=== PATIENT | male | born 1965 ===

== ENCOUNTER 2018-04-20 13:21 | Inpatient (IN) | payer BC ==
[2018-04-22] MEDS: HYDROCODONE/APAP 10/325 TAB PO PRN ×2 (19:12→23:22)
[2018-04-22] MEDS ORDERED: Herbals/Supplements -Info Only PO SCH (21:00)
[2018-04-22] MEDS: GABAPENTIN 300 MG CAP PO SCH (21:07)
[2018-04-22] MEDS: INSULIN GLARGINE 100 UNITS/ML UNIT SC SCH (21:09)
[2018-04-23] MEDS: HYDROCODONE/APAP 10/325 TAB PO PRN ×2 (05:41→09:56)
[2018-04-23] MEDS ORDERED: Meloxicam [Meloxicam] 15 MG PO SCH (09:00)
[2018-04-23] MEDS: ENOXAPARIN 40 MG/0.4 ML SYR SC SCH (09:56)
[2018-04-23] MEDS ORDERED: GABAPENTIN 300 MG CAP PO SCH (10:00)
[2018-04-23 10:11] LABS: PLATELET COUNT 399 10^3/uL (150-400)
--- NOTE | 2018-04-23 12:48 | PDOREHIP ---
Admission IRF-[facility] - Admission - 3 Day Assessment Period Admission Date/Day 1: 04/22/18 Day 2: 04/23/18 Day 3: 04/24/18 - Active Diagnoses Comorbidities and Co-existing Conditions at Admission: 53523. PVD or PAD, 81331. DM (e.g. diabetic retinopathy, nephropathy, and neuropathy) - Skin Conditions Unhealed Pressure Ulcer (1 or more/Stage 1 or >)-Admission: 1. Yes # Unstageable Pressure Ulcers (Slough/Eschar)-Admission: 1 (Right heel)
[2018-04-23] MEDS: oxyCODONE IR 5 MG TAB PO PRN ×2 (13:54→20:21)
--- NOTE | 2018-04-23 14:21 | GHP ---
[f rep st] HISTORY AND PHYSICAL DATE OF ADMISSION: 04/22/2018 TIME OF EVALUATION: 1230. REFERRING FACILITY: [facility]. REFERRING PHYSICIAN: Dr. Dozier IMPAIRMENT GROUP: 5.4. DATE OF ONSET: 04/18/2018. CONSULTING PHYSICIANS: He was seen in consultation by the Infectious Disease service and on his prior hospital stay he had a BKA by orthopedic surgeon, Dr. Shikha Hill, and also had consultation with Podiatry Dr. George, and Wound Care. REHABILITATION DIAGNOSIS: Debility, status post left iijcw-heg-gebl amputation. RADIOLOGIC DIAGNOSIS: Unilateral lower limb below the knee. DATE OF SURGERY: 04/17/2018. HISTORY OF PRESENT ILLNESS: This patient had a left vdmmm-tzc-mwlv amputation on 04/17/2018. He was discharged home and suffered a mechanical fall while attempting to transfer from his scooter. He returned to [facility]. There was no acute injury found. He was referred from there to inpatient rehabilitation for functional training for a safe discharge to home. STUDIES AND LABS IN THE HOSPITAL: He had a basic metabolic profile done on . There was a slightly high chloride at 108. Otherwise, renal function and electrolytes were within normal limits. His blood sugars during his stay ranged from 99-185. CBC revealed anemia with a hemoglobin of 7.7 and a hematocrit of 25.5 on 04/20/2018. Otherwise, CBC was normal. He had cultures done of amputated tissue on 04/17/2018, and these were not growing any organisms. PRECAUTIONS: He is a fall risk. He has orthopedic precautions with nonweightbearing on the left lower extremity. ACTIVE COMORBIDITIES: He has the tier 3 comorbidity of diabetes mellitus with manifestation. He otherwise has no tier 1, tier 2, or tier 3 comorbidities. PAST MEDICAL HISTORY: 1. Diabetes mellitus type 2. 2. Peripheral vascular disease. 3. Hypertension. 4. Osteomyelitis of the left lower extremity, which had previously been treated with antibiotics and hyperbaric oxygen. PAST SURGICAL HISTORY: He has had the msoex-ytt-vbdv amputation on the left. PRE-HOSPITAL MEDICATIONS: I do not have a list other than knowing that he was on metformin and meloxicam. ADMISSION MEDICATIONS: 1. Gabapentin 300 mg daily at 10 a.m. and 600 mg daily at bedtime. 2. Insulin glargine 10 units subcutaneous at bedtime. 3. Hydrocodone/acetaminophen 10/325 one tab p.o. q.4 hours p.r.n. 4. Meloxicam 15 mg p.o. daily. ALLERGIES: He has an allergy to penicillins. PSYCHOSOCIAL HISTORY: He is . He lives with his . 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 He reports he currently works for a [employer]. He has a history of heavy alcohol use, but he has been sober. He has a history of smoking, but has reduced his smoking to 3 or 4 cigarettes a day and intends to quit entirely. FAMILY HISTORY: Noncontributory. REVIEW OF SYSTEMS: He reports poor sleep for weeks. Pain occasionally interrupts sleep, but just as much he has been interrupted by hospital personnel for cares. He has pain below the knee on the left lower extremity and he has some phantom limb pain as well. He denies fevers or chills, cough or dyspnea, nausea, vomiting, constipation, or diarrhea. He denies dysuria or urinary frequency. He reports sensation is absent to light touch on the right lower leg where he says he has sensation for pressure. Otherwise, a 10-point review of systems is negative. PHYSICAL EXAM: VITAL SIGNS: Blood pressure is 106/65, heart rate is 80, respiratory rate is 18, oxygen saturation is 97% on room air. Temperature is 36.4 degrees centigrade. His weight is 112.7 kg for a body mass index of 32. GENERAL: This is an obese man, dressed in street clothes, napping in bed, easily awakened, cooperative, and in no acute distress. HEENT: Extraocular movements are intact. Pupils are equal, round, reactive to light. Mucous membranes are moist. Dentition is in good condition. He has an uncrowded airway, Mallampati class 2. NECK: Supple. HEART: There is a regular rate and rhythm with no murmurs, rubs, or gallops. LUNGS: Clear to auscultation bilaterally. ABDOMEN: Soft, nontender, nondistended with normoactive bowel sounds and no hepatosplenomegaly. He has abdominal obesity. EXTREMITIES: Radial pulses are 2+ bilaterally. Dorsalis pedis pulse is trace on the right lower extremity. Posterior tibialis pulse is not palpable. He has trace to 1+ edema on the right lower extremity. The left lower extremity is wrapped and with a residual limb protector, which also keeps his left knee in extension. NEUROLOGIC: He is alert and oriented x3. Cranial nerves 2-12 are grossly intact. There is no focal weakness. Sensation overall is intact to light touch , but absent or diminished in the left lower extremity. SKIN: There is approximately 1 cm eschar over the left heel and he has what appeared to be Mepilex bandages on the 5th and 4th toes. CURRENT LEVEL OF FUNCTION PER THE PREADMISSION SCREEN: He required setup for meals, but otherwise no assistance for diet, feeding, or swallowing. He required supervision and setup for grooming. Dressing was done with supervision for the upper body and moderate assistance for the lower body. Toileting required standby assist for transfers. He was independent with hygiene. He was continent of bowel and bladder. Bed mobility required standby assist with a railing. For transfers, he did a stand pivot transfer with standby assist and moderate cues for safety. He used a front-wheeled walker. Balance required standby to contact guard assist. Endurance was fair. He ambulated 2 feet with a front-wheeled walker. Cognition and communication were considered within normal limits. There are no significant changes on the current exam from the pre-admission screen. IMPRESSION: This is a 52-year-old man with a long history of type 2 diabetes and peripheral vascular disease and history of smoking, who had a chronic left foot infection since September of 2017. He reports this began with a furniture tack which he stepped on and the initial wound became infected. After a prolonged period of antibiotics and attention from a waterproof coating machine tender, he had osteomyelitis which was not healing, and so he elected to have a left below-the- knee amputation. Surgery apparently went well with minimal complications and he was discharged home. However, while at home, he had a fall while attempting to make a transfer from his scooter. His felt overwhelmed trying to take care of him in his condition; and, at the instruction of a visiting nurse in his home, he went back to [facility]. There, he was assessed to not have serious injury and had normal lab studies, he was participating in physical and occupational therapies, and appropriate for inpatient rehabilitation. His goal is to complete a rehabilitation stay and then discharge home with supportive services. For a safe discharge, he will need to achieve independence with eating, grooming, dressing and bed mobility. It is expected he will achieve modified independence for transfers and that he will be ambulating with a walker versus crutches. He will be independent with use of a wheelchair for community distances. He will have modified independence to negotiate stairs. He will have therapy with Physical Therapy and Occupational Therapy. Additionally, I have ordered speech and language pathology due to concerns regarding cognition expressed by nurses this morning. So, he will have physical therapy, occupational therapy, and speech and language pathology for 1 hour per day for each discipline on 5-7 days of the week. His expected duration of stay is 5-7 days. It is anticipated that upon discharge he will continue to benefit from home health services including nursing, occupational therapy, and physical therapy, as well as an amputation support group. PLAN: 1. Debility, status post left qhzzr-tfd-tszh amputation. PT and OT to optimize mobility and activities of daily living toward the independent to modified independent level. 2. Aftercare for yqqbe-abp-sfhm amputation. Continue brace to lower limb to protect stump and maintain the knee in extension to avoid contracture. I have discussed wound care with the wound care clinic at [facility] and they will be faxing further wound care instructions. 3. Diabetes mellitus type 2. He is on insulin glargine 10 units subcutaneous at bedtime. Laboratories were checked this morning. His hemoglobin A1c was 7.2 , indicating quite good control with his current regimen. We will have further discussion with him regarding restarting metformin. Potentially, insulin can be tapered further. Upon reading hospital notes, his glycemic control is better than prior to his amputation. Presumably, the chronic infection was causing hyperglycemia. His fasting glucose this morning was 107. There will be a geriatric physician consult who can also address his obesity. 4. Peripheral vascular disease and ulceration to the right heel and between toes on the right foot. I have ordered a Wound Care consult. His heel will be offloaded and I have asked for wound care orders from the wound care clinic at [facility]. 5. Anemia. Postoperative is improving quite a bit with a hemoglobin of 9.9 and a hematocrit of 32.3 this morning. MCV is normal at 88.3. Doubtful that he will need further blood draws during his stay. 6. History of alcohol abuse. Liver function tests were overall within normal limits this morning. Alkaline phosphatase was slightly elevated at 202, but this may have been bony in origin status post amputation. 7. Pain management appears to be less than adequate on hydrocodone/ acetaminophen combination. Will discontinue that medication and initiate oxycodone 5-10 mg q.3 hours p.r.n. and additionally will prescribe acetaminophen 1000 mg p.o. three times daily scheduled. Will continue gabapentin and will increase dosing from 300 mg in the morning and 600 mg at bedtime to 300 mg in the morning and the afternoon and 600 mg at bedtime to treat phantom limb pain and diabetic neuropathy. 8. Possible cognitive impairment versus delirium. Nursing reports that he was disoriented this morning and had difficulty cognitively understanding the menu and ordering meals. I have ordered a speech and language pathology consultation to evaluate his cognition. I anticipate that it will improve as any delirium from the hospital resolves and as his sleep improves. 9. Insomnia. We will pay attention to pain control. I have also ordered melatonin for the next 3 nights to reset his sleep/wake cycle which presumably has been disturbed during his hospitalization, and I have ordered trazodone 50 mg scheduled at bedtime. 10. Tobacco dependence syndrome. He intends to quit smoking. He declined the offer of nicotine replacement products. 11. Prophylaxis. He is at elevated risk with obesity and status post below-the -knee amputation. I have ordered enoxaparin 40 mg subcutaneous daily. Anticoagulation should be continued 2-4 weeks for DVT prophylaxis status post bavij-glm-ajpe amputation. He has no history of gastric ulceration or gastritis. I will not prescribe an acid reducing medication. 13. Followup: He will follow up with orthopedic surgeon, Dr. Shikha Hill at the [facility] after discharge. /[id number]/MODL MTDD
[2018-04-23] MEDS: GABAPENTIN 300 MG CAP PO SCH ×2 (14:50→20:19)
[2018-04-23] MEDS: ACETAMINOPHEN 500 MG TAB PO SCH ×2 (14:50→20:20)
[2018-04-23] MEDS: MELATONIN 3 MG TAB PO SCH (20:20)
[2018-04-23] MEDS: traZODone 50 MG TAB PO SCH (20:20)
[2018-04-23] MEDS: INSULIN GLARGINE 100 UNITS/ML UNIT SC SCH (21:45)
[2018-04-24] MEDS: oxyCODONE IR 5 MG TAB PO PRN ×6 (01:52→21:10)
[2018-04-24] MEDS: GABAPENTIN 300 MG CAP PO SCH ×3 (08:59→21:09)
[2018-04-24] MEDS: ENOXAPARIN 40 MG/0.4 ML SYR SC SCH (08:59)
[2018-04-24] MEDS: ACETAMINOPHEN 500 MG TAB PO SCH ×3 (08:59→21:10)
[2018-04-24] MEDS ORDERED: BISACODYL 10 MG SUPP PR PRN (09:36)
[2018-04-24] MEDS ORDERED: SENNOSIDES 1 TAB PO PRN (09:36)
--- NOTE | 2018-04-24 09:59 | SOAPPROG ---
SOAP Progress Note Assessment/Plan: Assessment: Debility, status post left amwgi-qyk-hffy amputation. * Initial functional independence measure is 98 on 04/24/2018. Standby assist for bed mobility. Contact guard assist for transfers with cues. Ambulated 50 ft with a front wheeled walker and contact guard assist. Did grooming and hygiene with standby assist, seated. Upper body dressing is independent with setup, lower body dressing requires standby assist. He showered with intermittent supervision. Toilet transfer was done with contact guard assist. * Continue PT and OT to optimize mobility and activities of daily living toward the independent to modified independent level. Aftercare for dpfju-qvb-zomm amputation. Continue brace to lower limb to protect stump and maintain the knee in extension to avoid contracture. * Knee pain and popliteal redness may be due to the fit of the brace. PT to work with patient to optimize fit. * Dressing to be left in place on residual limb. Diabetes mellitus type 2. * Initiate metformin 500 mg twice daily starting 04/24/2018; titrate to 1000 mg twice daily if tolerated. Check daily fasting blood sugar. Reduce insulin glargine from 10 units at bedtime to 5 units at bedtime. * Appreciate assistance of dietitian regarding diabetic diet and obesity. Pain management. * Discontinued hydrocodone/acetaminophen 04/23/2018 and initiated oxycodone 5-10 mg q.3 hours p.r.n., with acetaminophen 1000 mg p.o. three times daily scheduled. * Continue gabapentin. Increased dosing from 300 mg in the morning and 600 mg at bedtime to 300 mg in the morning and the afternoon and 600 mg at bedtime to treat phantom limb pain and diabetic neuropathy. Peripheral vascular disease and ulceration to the right heel and between toes on the right foot. * Offload left heel. * Wound care orders for toes are for Medi Honey and cover with Band-Aid. Medihoney is unavailable on formulary. Per Wound Care nurse suggestion, substituting SilvaSorb. Anemia, postoperative. Improving. Possible cognitive impairment versus delirium. Nursing reported that he was disoriented morning of 04/23/2018 and had difficulty cognitively understanding the menu and ordering meals. * Seen by speech therapy. Considerably improved. Insomnia, responded to melatonin (ordered for 3 nights to reset his sleep/wake) and trazodone 50 mg scheduled at bedtime. Tobacco dependence syndrome. He intends to quit smoking. He declined the offer of nicotine replacement products. History of alcohol abuse. Liver function tests were overall within normal limits this morning. Alkaline phosphatase was slightly elevated at 202, but this may have been bony in origin status post amputation. Prophylaxis. He is at elevated risk with obesity and status post below-the- knee amputation. However literature review does not demonstrate improved outcomes regarding DVT and pulmonary embolus with anticoagulation versus placebo in bzohz-ovx-dnqz amputation. Will not continue enoxaparin, which was started 04/23/2018. DISPOSITION: Attended staffing, 15 min. Discussed with nursing, case management, dietitian, PT, OT, SL P. Doing very well. Has multiple stairs to enter and then within the house. Anticipating discharge on 04/27/2018. Will have home PT, OT, and a nurse for wound care. FOLLOW-UP: He will follow up with orthopedic surgeon, Dr. Shikha Hill at the [facility] after discharge. 04/24/18 12:05 Subjective: Had much better sleep last night. Has pain and tenderness over his left knee and nursing has noted some redness behind the knee. Bowels are moving. No cough or dyspnea, no fevers or chills. Objective: Vital Signs Temp Pulse Resp BP Pulse Ox 36.9 C 72 16 93/58 L 94 04/24/18 08:00 04/24/18 08:00 04/24/18 08:00 04/24/18 08:00 04/24/18 08:00 Laboratory Results 04/23/18 09:10 04/23/18 09:10 04/23/18 04/24/18 04/25/18 05:59 05:59 05:59 Intake Total 800 700 240 Output Total 1600 250 Balance -800 450 240 - Time Spent With Patient Time Spent With Patient: Greater than 35 min floor time today, including more than 50% of time in coordination of care during staffing meeting, and counseling patient. Physical Exam - Physical Exam General Appearance: WD/WN, alert, no apparent distress, obese Respiratory: No respiratory distress, No accessory muscle use Cardiac/Chest: No edema Skin: normal color, warm/dry, other (Shallow ulcerations with clean base lateral 4th and 5th toes of right foot. Thin band of erythema popliteal medial to posterior approximately 10 cm. ) Extremities: other (Very tender over lateral patella left leg.) Neuro/Psych: alert, normal mood/affect, oriented x 3 ICD10 Worksheet Patient Problems: Problems Problem Status Onset MRSA (methicillin resistant Staphylococcus aureus) Acute 01/15/15 S/P BKA (below knee amputation) Acute
[2018-04-24] MEDS ORDERED: INSULIN GLARGINE 100 UNITS/ML UNIT SC SCH (12:26)
[2018-04-24] MEDS: metFORMIN HCL 500 MG TAB PO SCH (17:13)
[2018-04-24] MEDS: traZODone 50 MG TAB PO SCH (21:09)
[2018-04-24] MEDS: MELATONIN 3 MG TAB PO SCH (21:09)
[2018-04-25] MEDS: oxyCODONE IR 5 MG TAB PO PRN ×4 (00:30→11:50)
[2018-04-25] MEDS ORDERED: LOPERAMIDE HCL 2 MG CAP ONE (01:24)
[2018-04-25] MEDS ORDERED: LOPERAMIDE HCL 2 MG CAP PO ONE (02:00)
[2018-04-25 08:11] VITALS: BP 93/60
[2018-04-25] MEDS: ACETAMINOPHEN 500 MG TAB PO SCH ×2 (08:15→17:24)
[2018-04-25] MEDS: metFORMIN HCL 500 MG TAB PO SCH (08:19)
[2018-04-25] MEDS ORDERED: POLYETHYLENE GLYCOL 3350 17 GM PKT PO SCH (09:00)
[2018-04-25] MEDS: GABAPENTIN 300 MG CAP PO SCH ×2 (09:34→16:28)
--- NOTE | 2018-04-25 11:46 | SOAPPROG ---
SOAP Progress Note Assessment/Plan: 52-year-old male with chronic diabetes status post BKA on the left side for nonhealing wounds, impairments in mobility and self-care as well as what appears to be cognition of an unknown etiology Today's update: Fall this morning associated with at least 5 cm dehiscence of the amputation wound on his residual limb. Continues to use a small amount of blood, discussed with [facility] at the [facility], [phone]. They are requesting a surgical consultation in their office this afternoon. Follow-up from x-ray prior to fall indicated some small joint effusion, no other acute injury. Team is concerned that despite repeated attempts to educate for fall prevention and maintenance of precautions and mobility clearance level, he had a fall this morning during a transfer to his wheelchair which was not yet authorized. Additionally, later in the day he was observed by therapist to have transferred without assistance again. We have significant concerns about his cognitive capacity for learning and adherence to his precautions. Plan to have him evaluated in wound Care Clinic today awaiting further recommendations. A total of 90 min was spent on the floor in the care of the patient, the majority of which was spent in counseling coordination of care regarding evaluation of his wound with his surgeon. Additional issues reviewed without change today include diabetes type 2, pain management, peripheral vascular disease, anemia, insomnia, tobacco dependence syndrome, history of alcohol abuse. 04/25/18 11:42 04/25/18 11:49 Subjective: Chief complaint: Fall in residual limb Notified by nursing staff today that the patient had a fall between 7 and 8:00 a.m. Associated with an on authorize transfer from bed to wheelchair. Reports indicate that he associates the fall with a miss judgment of his abilities. Was initially told that 1 staple came loose from the wound in that was continuing to use. Was examined with nursing, please see exam below. Patient denies any new significant pain, still has some knee pain associated with prior fall. Advised him to remain in bed, holding therapies and limiting them to in bed only. Objective: Vital Signs Temp Pulse Resp BP Pulse Ox 36.8 C 73 16 93/60 L 94 04/25/18 08:09 04/25/18 08:09 04/25/18 08:09 04/25/18 08:09 04/25/18 08:09 Laboratory Results 04/23/18 09:10 08/28/18 09:10 04/24/18 04/25/18 04/26/18 05:59 05:59 05:59 Intake Total 700 1040 1240 Output Total 250 Balance 450 1040 1240 Physical Exam - Physical Exam General Appearance: WD/WN, alert, no apparent distress EENT: No scleral icterus (R), No scleral icterus (L) Respiratory: No respiratory distress, No accessory muscle use Cardiac/Chest: normal peripheral pulses, regular rate, rhythm, No edema Skin: normal color, warm/dry, other (Surgical wound was examined the with dehiscence of approximately 5 cm in length of the surgical wound. There were probably 8-10 shawn that had pulled through. Subcutaneous tissue was visible at the wound and was oozing blood. At the time that the dressing was taken down , it was soaked through several layers of Kerlix. This is been changed just an hour to before.), No cyanosis, No diaphoresis Extremities: other (See above skin exam, stone and concrete washer not in place) Neuro/Psych: alert, normal mood/affect, other (Logical speech, recognize the error in his judgment.) ICD10 Worksheet Patient Problems: Problems Problem Status Onset MRSA (methicillin resistant Staphylococcus aureus) Acute 01/15/15 S/P BKA (below knee amputation) Acute
--- NOTE | 2018-04-25 18:01 | PDDCSUM ---
Discharge Summary Discharge Summary: Name: Alexandro Saxena Admission date: 04/22/2018 Discharge date: 04/25/2018 Discharging physician: Joaquin Michael MD Admitting diagnosis: 5.4, Left-sided BKA Discharge diagnosis: Same Comorbid diagnoses: Morbid obesity, diabetes mellitus with peripheral vascular disease, status post [id number] amputation, postoperative pain, anemia, possible cognitive impairment, insomnia, tobacco dependence syndrome, history of alcohol abuse Consultations: physical therapy, occupational therapy, speech language pathology , social work, dietary Procedures: Left-sided knee plain films 04/24/2018: No fracture identified, unfused ossifications centers of the tibial tubercle are noted. Small joint effusion. Reason for admission: Please see the full history and physical by Dr. Alonso Thomas dated 04/22/2018 for full details, but briefly this is a 52-year-old male with a past medical history of diabetes and peripheral vascular disease who had a nonhealing ulcer of the left foot and underwent a left lwizy-axj-bquo amputation on 04/17/[address] Ariana Hill at [facility]. He was discharged home and had a mechanical fall while attempting to transfer from a scooter and return to [facility]. He was referred to inpatient rehabilitation for functional training to facilitate a safe discharge home. Rehabilitation course: On inpatient rehabilitation he was noted have some unspecified cognitive impairments that were difficult to quantify given limited engagement with speech therapy. He had difficulty adhering to his precautions. On the morning of 04/25/2018 he was found down on the floor by nursing after a mechanical fall related to transferring on his own, which he was not yet cleared to do. No injury besides to the residual limb. It was noted that the surgical incision had significant dehiscence approximately 5 cm long with shawn that had pulled through. Subcutaneous tissue was visible. The Surgical group at the [facility] at [facility] was notified , they desired to see him in clinic and admitted him to the hospital for further care. Discharge plan: Discharged to [facility] for further management of wound dehiscence Condition: He should be considered a high fall risk both because of the history of non adherence to precautions but also because of some possible cognitive impairment. This was not completely characterized urine inpatient rehabilitation but it was noted by several staff members that he had difficulty remembering conversations and safety precautions. Medications at discharge: Gabapentin 300 mg twice daily at 10, 15 Gabapentin 600 mg orally at bedtime Oxycodone 5-10 mg orally every 3 hr as needed for pain Insulin glargine 5 units subcutaneous at bedtime Melatonin 3 mg orally at bedtime Acetaminophen 1000 mg orally 3 times a day Metformin 500 mg orally twice daily with meals Senna 1-2 tabs orally twice daily as needed Trazodone 50 mg orally at bedtime Herbal supplements taking at home Pending studies: None Issues to be addressed at follow-up: He will likely need some ongoing rehabilitation either in an acute rehabilitation facility or subacute rehab. He may benefit from subacute rehab only because he would be able to get it for a longer duration before discharging home. Recommend additional evaluation for possible cognitive impairments. This may necessitate further workup. Follow up: Please be in touch with [facility] inpatient rehabilitation for ongoing discharge planning. Patient will have follow up with his surgery team at the acute [facility] hospital. Please see the Daily note from earlier today for additional physical exam and findings. In all, a total of over 120 min was spent on the floor in the care of the patient, the majority of which was spent in discharge planning.
--- NOTE | 2018-04-30 11:45 | PDOREHIP ---
Admission [facility] - Admission - 3 Day Assessment Period Admission Date/Day 1: 04/22/18 Day 2: 04/23/18 Day 3: 04/24/18 Discharge [facility] - Discharge Skin Conditions Unhealed Pressure Ulcer (1 or more/Stage 1 or >)-Discharge: 0. No
== END 2018-04-25 19:12 | disposition short-term general hospital (02) | DRG 540 ==
LOC: BREH 04-22 17:41
PROVIDERS: ADMIT Internal Medicine; ATTEND Internal Medicine
PROC: F02Z1ZZ Dressing Assessment (ICD-10-PCS; principal; 2018-04-22)
PROC: F02Z2ZZ Feeding/Eating Assessment (ICD-10-PCS; principal; 2018-04-22)
PROC: F0636ZZ Communicative/Cognitive Integration Skills Treatment of Neurological System - Whole Body (ICD-10-PCS; principal; 2018-04-22)
PROC: F02Z3ZZ Grooming/Personal Hygiene Assessment (ICD-10-PCS; principal; 2018-04-22)
DX: M86.9 Osteomyelitis, unspecified (principal); Z89.512 Acquired absence of left leg below knee; T81.31XA Disruption of external operation (surgical) wound, not elsewhere classified, initial encounter; W18.39XA Other fall on same level, initial encounter; Y92.230 Patient room in hospital as the place of occurrence of the external cause; E11.51 Type 2 diabetes mellitus with diabetic peripheral angiopathy without gangrene; E11.621 Type 2 diabetes mellitus with foot ulcer; L97.419 Non-pressure chronic ulcer of right heel and midfoot with unspecified severity; D64.9 Anemia, unspecified; G47.00 Insomnia, unspecified; E66.01 Morbid (severe) obesity due to excess calories; I10 Essential (primary) hypertension; Z79.4 Long term (current) use of insulin; Z79.84 Long term (current) use of oral hypoglycemic drugs
CPT/HCPCS: 92507-GN; 92523-GN; 97110-GO; 97110-GP; 97116-GP; 97161-GP; 97166-GO; 97530-GO; 97530-GP; 97535-GO; 97542-GP; J1650; J1815